=== PATIENT | male | born 1955 | race African-American/Black ===

== ENCOUNTER 2017-08-02 17:38 | Inpatient (IN) ==
[2017-08-02] MEDS ORDERED: SODIUM CHLORIDE 0.9% 2,000 ML IV STA ×2 (20:39→23:49)
[2017-08-02] MEDS ORDERED: ONDANSETRON 4 MG/2 ML VIAL IV STA (20:39)
[2017-08-02 21:34] LABS: Basophils # 0.1 10*3/uL (0.0-0.2); Basophils % 0.6 % (0.0-0.8); Eosinophils # 0.1 10*3/uL (0.0-0.87); Eosinophils % 1.1 % (0.00-10.9); Hematocrit 32.6 VOL% (42.0-52.0); Hemoglobin 10.3 GM/DL (14.0-18.0); Immature Granulocytes % 0.5 %; Immature Granulocytes Absolute 0.06 #; Lymphocytes # 0.8 10*3/uL (1.4-4.0); Lymphocytes % 6.9 % (21.2-54.2); Mean Corpuscular HGB Conc 31.6 GM/DL (32-36); Mean Corpuscular Hemoglobin 28 PG (27-34); Mean Corpuscular Volume 87.6 FL (87-102); Mean Platelet Volume 9.6 FL (9.6-12.0); Monocytes # 0.8 10*3/uL (0.11-0.8); Neutrophils % 83.9 % (38.7-73.9); Platelet Count 350 T/CUMM (130-400); Red Blood Count 3.72 MC/CUMM (3.8-5.5); Red Cell Distribution Width 14.9 % (9.3-17.3)
[2017-08-02 23:38] LABS: Albumin 2.6 G/DL (3.4-5.0); Bilirubin,Total 0.5 MG/DL (0.2-1.0); Calcium 13.9 MG/DL (8.5-10.1); Osmolality,Calculated 272.1 MOS/KG (273-304); Potassium 3.6 MMOL/L (3.5-5.1); Total Protein 6.8 G/DL (6.4-8.3)
[2017-08-02] MEDS ORDERED: cefTRIAXone 1,000 MG in SODIUM CHLORIDE 0.9% 100 ML IV STA (23:48)
[2017-08-02] MEDS ORDERED: FUROSEMIDE 40 MG/4 ML VIAL IV STA (23:51)
[2017-08-02] MEDS ORDERED: methylPREDNISolone SOD SUC 125 MG/2 ML VIAL IV STA (23:52)
[2017-08-02] MEDS ORDERED: AZITHROMYCIN 500 MG VIAL IV ONE (23:56)
[2017-08-02] MEDS ORDERED: cefTRIAXone 1,000 MG VIAL ONE (23:56)
[2017-08-02] MEDS ORDERED: FUROSEMIDE 40 MG/4 ML VIAL ONE (23:56)
[2017-08-02] MEDS ORDERED: SODIUM CHLORIDE 0.9% 100 ML IV ONE (23:56)
[2017-08-03 00:46] LABS: Apearance,Urine CLEAR (Clear); Bacteria,Urine Occasional /HPF (Few); Bilirubin,Urine Negative (Negative); Blood, Urine Negative (Negative); Glucose,Urine (UA) Negative (Negative); Hyaline Casts,Urine 1 /LPF (0-3); Ketones,Urine 5 mg/dL (Negative); Mucus,Urine Occasional /LPF (Occasional); Nitrite,Urine Negative (Negative); Protein,Urine Negative; RBC,Urine 2 /HPF (0-4); Squamous Epithelial Cell,Urine Occasional /HPF (0-10); Urine Color Yellow (Yellow); Urine Specific Gravity 1.011 (1.001-1.035); Urine Urobilinogen < 2.0 EU/DL (0.2-1.0); WBC,Urine 10 /HPF (0-6)
[2017-08-03] MEDS ORDERED: methylPREDNISolone SOD SUC 125 MG/2 ML VIAL ONE (00:53)
[2017-08-03] MEDS ORDERED: ONDANSETRON 4 MG/2 ML VIAL IV PRN (02:38)
[2017-08-03] MEDS ORDERED: DOCUSATE SODIUM 100 MG CAPSULE PO PRN (02:38)
[2017-08-03] MEDS ORDERED: ALBUTEROL/IPRATROPIUM 3 ML NEB RESP TX STA (02:45)
[2017-08-03] MEDS ORDERED: ALBUTEROL/IPRATROPIUM 3 ML NEB RESP TX PRN (02:45)
[2017-08-03] MEDS ORDERED: ENOXAPARIN 40 MG/0.4 ML SYRINGE SUBCUT SCH (03:00)
[2017-08-03] MEDS: AZITHROMYCIN INJ 500 MG in SODIUM CHLORIDE 0.9% 250 ML IV STA ×2 (03:05→05:59)
[2017-08-03] MEDS: SODIUM CHLORIDE 0.9% 1,000 ML IV SCH ×3 (05:44→18:18)
[2017-08-03] MEDS: PIPERACILLIN/TAZOBACTAM 3,375 MG in SODIUM CHLORIDE 0.9% 100 ML IV SCH ×3 (05:45→21:40)
[2017-08-03] MEDS ORDERED: ZOLEDRONIC ACID 4 MG in PREMIX 1 EACH IV ONE (06:00)
[2017-08-03] MEDS: ENOXAPARIN 40 MG/0.4 ML SYRINGE SUBCUT SCH (06:22)
[2017-08-03 06:35] LABS: Basophils # 0.1 10*3/uL (0.0-0.2); Basophils % 0.4 % (0.0-0.8); Eosinophils % 0.4 % (0.00-10.9); Hematocrit 30.7 VOL% (42.0-52.0); Hemoglobin 9.5 GM/DL (14.0-18.0); Immature Granulocytes % 0.6 %; Immature Granulocytes Absolute 0.07 #; Lymphocytes # 0.3 10*3/uL (1.4-4.0); Lymphocytes % 2.8 % (21.2-54.2); Mean Corpuscular HGB Conc 30.9 GM/DL (32-36); Mean Corpuscular Hemoglobin 27 PG (27-34); Mean Platelet Volume 9.9 FL (9.6-12.0); Monocytes # 0.2 10*3/uL (0.11-0.8); Monocytes % 2.1 % (1.7-12.7); Neutrophils # 10.7 10*3/uL (1.4-7.4); Neutrophils % 93.7 % (38.7-73.9); Platelet Count 364 T/CUMM (130-400); Red Blood Count 3.53 MC/CUMM (3.8-5.5); Red Cell Distribution Width 15.2 % (9.3-17.3); White Blood Count 11.4 T/CUMM (4-12)
[2017-08-03 07:09] LABS: Albumin 2.6 G/DL (3.4-5.0); Bilirubin,Total 0.7 MG/DL (0.2-1.0); Calcium 13.4 MG/DL (8.5-10.1); Osmolality,Calculated 276.7 MOS/KG (273-304)
[2017-08-03 08:11] LABS: Band Neutrophils 2 % (0-10); Eosinophils 1 % (0-10); Lymphocytes 2 % (20-55); Platelet Estimate Normal; Segmented Neutrophils 95 % (50-85); Total Cells Counted 100
[2017-08-03] MEDS: amLODIPine 10 MG TABLET PO SCH (08:20)
[2017-08-03] MEDS: PANTOPRAZOLE 40 MG TABLET PO SCH (09:09)
[2017-08-03] MEDS ORDERED: guaiFENesin/DM ER 600-30 MG TABLET PO PRN (13:43)
[2017-08-03] MEDS ORDERED: FOLIC ACID 0.4 MG TABLET PO PRN (13:43)
[2017-08-04] MEDS: SODIUM CHLORIDE 0.9% 1,000 ML IV SCH ×3 (04:33→15:28)
[2017-08-04] MEDS: ENOXAPARIN 40 MG/0.4 ML SYRINGE SUBCUT SCH (06:18)
[2017-08-04] MEDS: PIPERACILLIN/TAZOBACTAM 3,375 MG in SODIUM CHLORIDE 0.9% 100 ML IV SCH ×2 (06:20→17:50)
[2017-08-04 07:43] LABS: INR 1.5; PT Patient Result 15.4 SECS
[2017-08-04 08:10] LABS: Calcium 12.5 MG/DL (8.5-10.1); Magnesium 1.7 MG/DL (1.8-2.4); Osmolality,Calculated 284.4 MOS/KG (273-304); Potassium 3.3 MMOL/L (3.5-5.1)
[2017-08-04] MEDS: FUROSEMIDE 40 MG/4 ML VIAL IV SCH ×3 (10:27→16:18)
[2017-08-04] MEDS: amLODIPine 10 MG TABLET PO SCH (10:27)
[2017-08-04] MEDS: PANTOPRAZOLE 40 MG TABLET PO SCH (10:28)
[2017-08-04] MEDS: POTASSIUM CHLORIDE 20 MEQ TABLET PO SCH ×3 (10:28→16:15)
[2017-08-04] MEDS ORDERED: MAGNESIUM SULF RIDER 4 GM in PREMIX 1 EACH IV PRN (11:29)
[2017-08-04] MEDS ORDERED: MAGNESIUM SULF RIDER 2 GM in PREMIX 1 EACH IV PRN (11:29)
[2017-08-05] MEDS: PIPERACILLIN/TAZOBACTAM 3,375 MG in SODIUM CHLORIDE 0.9% 100 ML IV SCH ×2 (02:07→10:26)
[2017-08-05] MEDS: SODIUM CHLORIDE 0.9% 1,000 ML IV SCH ×2 (06:54→09:31)
[2017-08-05] MEDS ORDERED: DIAZEPAM 5 MG TABLET PO ONE (07:57)
[2017-08-05] MEDS: amLODIPine 10 MG TABLET PO SCH (09:22)
[2017-08-05] MEDS: FUROSEMIDE 40 MG/4 ML VIAL IV SCH (09:30)
[2017-08-05] MEDS: PANTOPRAZOLE 40 MG TABLET PO SCH (09:31)
[2017-08-06 06:58] LABS: Basophils % 0.4 % (0.0-0.8); Eosinophils # 0.2 10*3/uL (0.0-0.87); Eosinophils % 1.4 % (0.00-10.9); Hematocrit 31.3 VOL% (42.0-52.0); Immature Granulocytes % 0.8 %; Immature Granulocytes Absolute 0.09 #; Lymphocytes # 0.5 10*3/uL (1.4-4.0); Mean Corpuscular HGB Conc 31.9 GM/DL (32-36); Mean Corpuscular Hemoglobin 27 PG (27-34); Mean Corpuscular Volume 85.3 FL (87-102); Mean Platelet Volume 10.1 FL (9.6-12.0); Monocytes # 0.8 10*3/uL (0.11-0.8); Monocytes % 6.7 % (1.7-12.7); Neutrophils # 9.9 10*3/uL (1.4-7.4); Neutrophils % 86.7 % (38.7-73.9); Platelet Count 339 T/CUMM (130-400); Red Blood Count 3.67 MC/CUMM (3.8-5.5); Red Cell Distribution Width 15.2 % (9.3-17.3); White Blood Count 11.4 T/CUMM (4-12)
[2017-08-06 07:25] LABS: Eosinophils 2 % (0-10); Giant Platelets Few; Hypochromasia 1+; Lymphocytes 3 % (20-55); Ovalocytes Slight; Platelet Estimate Adequate; Segmented Neutrophils 86 % (50-85); Total Cells Counted 100
[2017-08-06 07:34] LABS: Calcium 9.5 MG/DL (8.5-10.1); Magnesium 1.6 MG/DL (1.8-2.4); Osmolality,Calculated 267.1 MOS/KG (273-304)
[2017-08-06 07:51] LABS: Potassium 2.5 MMOL/L (3.5-5.1)
[2017-08-06] MEDS ORDERED: MAGNESIUM SULF RIDER 2 GM in PREMIX 1 EACH IV ONE ×2 (07:54→15:12)
[2017-08-06] MEDS ORDERED: POTASSIUM CHLORIDE RIDER 10 MEQ in PREMIX 1 EACH IV SCH (08:00)
[2017-08-06] MEDS: amLODIPine 10 MG TABLET PO SCH (08:44)
[2017-08-06] MEDS: SODIUM CHLOR 0.45% KCL 20 MEQ 20 MEQ/1,000 ML BAG IV SCH (08:44)
[2017-08-06] MEDS: PANTOPRAZOLE 40 MG TABLET PO SCH (08:44)
[2017-08-06] MEDS ORDERED: POTASSIUM CHLORIDE INJ 40 MEQ in SODIUM CHLORIDE 0.45% 250 ML IV ONE (09:00)
[2017-08-06] MEDS: POTASSIUM CHLORIDE 20 MEQ TABLET PO SCH ×3 (16:25→23:51)
[2017-08-07] MEDS: POTASSIUM CHLORIDE 20 MEQ TABLET PO SCH (03:53)
[2017-08-07] MEDS: SODIUM CHLOR 0.45% KCL 20 MEQ 20 MEQ/1,000 ML BAG IV SCH ×2 (03:54→10:11)
[2017-08-07] MEDS: amLODIPine 10 MG TABLET PO SCH (08:42)
[2017-08-07] MEDS: PANTOPRAZOLE 40 MG TABLET PO SCH (08:42)
[2017-08-07 08:48] LABS: Calcium 8.1 MG/DL (8.5-10.1); Magnesium 2.1 MG/DL (1.8-2.4); Osmolality,Calculated 263.2 MOS/KG (273-304); Potassium 3.1 MMOL/L (3.5-5.1)
[2017-08-07] MEDS ORDERED: POTASSIUM CHLORIDE 20 MEQ TABLET PO ONE (11:00)
[2017-08-07 11:43] VITALS: BP 99/63
== END 2017-08-07 12:40 | disposition home or self-care (01) | DRG 181 ==
LOC: N.ED 17:38 → N.EDINP 08-03 02:38 → N.4E 08-03 04:38
PROVIDERS: ADMIT Internal Medicine; ATTEND Internal Medicine

== ENCOUNTER 2018-05-23 22:25 | Inpatient (IN) ==
[2018-05-23] MEDS ORDERED: SODIUM CHLORIDE 0.9% 1,000 ML IV STA (23:10)
[2018-05-23 23:17] LABS: Basophils % 0.5 % (0.0-0.8); Eosinophils % 0.2 % (0.00-10.9); Hematocrit 23.4 VOL% (42.0-52.0); Hemoglobin 7.6 GM/DL (14.0-18.0); Immature Granulocytes % 2.4 %; Lymphocytes # 1.5 10*3/uL (1.4-4.0); Lymphocytes % 18.2 % (21.2-54.2); Mean Corpuscular HGB Conc 32.5 GM/DL (32-36); Mean Corpuscular Hemoglobin 31 PG (27-34); Mean Corpuscular Volume 94.4 FL (87-102); Mean Platelet Volume 10.2 FL (9.6-12.0); Monocytes # 0.3 10*3/uL (0.11-0.8); Monocytes % 3.1 % (1.7-12.7); Neutrophils # 6.3 10*3/uL (1.4-7.4); Neutrophils % 75.6 % (38.7-73.9); Platelet Count 333 T/CUMM (130-400); Red Blood Count 2.48 MC/CUMM (3.8-5.5); Red Cell Distribution Width 17.9 % (9.3-17.3); White Blood Count 8.3 T/CUMM (4-12)
[2018-05-23 23:22] LABS: INR 1.2; PT Patient Result 12.4 SECS; Partial Thromboplastin Time 26.6 SECS (0-40)
[2018-05-23 23:34] LABS: Alanine Aminotransferase < 9 U/L (16-61); Albumin 2.6 G/DL (3.4-5.0); Alkaline Phosphatase 88 U/L (45-117); Aspartate Amino Transferase 13 U/L (0-37); Blood Urea Nitrogen 10 MG/DL (7-18); Calcium 9.4 MG/DL (8.5-10.1); Glucose 123 MG/DL (74-106); Sodium 136 MMOL/L (136-145); Total Protein 7.4 G/DL (6.4-8.3)
[2018-05-24 00:01] LABS: Lactic Acid 3.8 MMOL/L (0.4-2.0)
[2018-05-24] MEDS ORDERED: LORazepam 2 MG/1 ML VIAL ONE (00:09)
[2018-05-24] MEDS ORDERED: VANCOMYCIN INJ 1,000 MG in SODIUM CHLORIDE 0.9% 250 ML IV STA (00:14)
[2018-05-24] MEDS ORDERED: PIPERACILLIN/TAZOBACTAM 2,250 MG in SODIUM CHLORIDE 0.9% 100 ML IV STA (00:14)
[2018-05-24] MEDS ORDERED: LORazepam 2 MG/1 ML VIAL IV STA ×3 (00:20→03:37)
[2018-05-24] MEDS ORDERED: PIPERACILLIN/TAZOBACTAM 3,375 MG in SODIUM CHLORIDE 0.9% 100 ML IV STA (00:26)
[2018-05-24] MEDS ORDERED: SODIUM CHLORIDE 0.9% 1,000 ML IV STA (00:52)
[2018-05-24] MEDS: POTASSIUM CHLORIDE RIDER 100 ML IV SCH ×3 (01:13→06:05)
[2018-05-24 01:44] LABS: Apearance,Urine CLOUDY (Clear); Bacteria,Urine Many /HPF (Few); Bilirubin,Urine Negative (Negative); Blood, Urine Negative (Negative); Glucose,Urine (UA) Negative (Negative); Ketones,Urine Negative (Negative); Mucus,Urine Many /LPF (Occasional); Nitrite,Urine Negative (Negative); Protein,Urine 100 MG/DL; Urine Color Amber (Yellow); Urine Specific Gravity 1.019 (1.001-1.035); WBC,Urine 482 /HPF (0-6)
[2018-05-24 02:14] LABS: Barbiturates Screen,Urine Negative (Negative); Benzodiazepines Screen,Urine Negative (Negative); Cannabinoid Screen,Urine Negative (Negative); Opiate Screen,Urine Positive (Negative); Phencyclidine Screen,Urine Negative (Negative)
[2018-05-24] MEDS ORDERED: POTASSIUM CHLORIDE RIDER 100 ML IV ONE (05:02)
[2018-05-24] MEDS ORDERED: LORazepam 2 MG/1 ML VIAL IM PRN (05:22)
[2018-05-24] MEDS ORDERED: DEXAMETHASONE 4 MG/1 ML VIAL IV SCH (06:00)
[2018-05-24] MEDS: SODIUM CHLORIDE 0.9% 1,000 ML IV SCH (06:55)
[2018-05-24] MEDS ORDERED: diphenhydrAMINE 50 MG/1 ML VIAL IV PRN (07:01)
[2018-05-24] MEDS ORDERED: ACETAMINOPHEN 325 MG TABLET PO PRN (07:01)
[2018-05-24] MEDS ORDERED: FUROSEMIDE 20 MG/2 ML VIAL IV PRN (07:01)
[2018-05-24] MEDS ORDERED: SODIUM CHLORIDE 0.9% 1,000 ML IV PRN (07:01)
[2018-05-24 07:27] LABS: Calcium 8.4 MG/DL (8.5-10.1); Osmolality,Calculated 276.4 MOS/KG (273-304); Potassium 3.6 MMOL/L (3.5-5.1)
[2018-05-24] MEDS: LEVOFLOXACIN INJ 500 MG in PREMIX 1 EACH IV SCH (08:04)
[2018-05-24] MEDS ORDERED: PANTOPRAZOLE 40 MG TABLET PO SCH (09:00)
[2018-05-24] MEDS: DEXAMETHASONE 4 MG/1 ML VIAL IV SCH ×2 (09:38→17:13)
[2018-05-24] MEDS ORDERED: PIPERACILLIN/TAZOBACTAM 3,375 MG in SODIUM CHLORIDE 0.9% 100 ML IV SCH (10:00)
[2018-05-24] MEDS ORDERED: MAGNESIUM SULF RIDER 4 GM in PREMIX 1 EACH IV PRN (10:02)
[2018-05-24] MEDS: ZIPRASIDONE 20 MG/1 ML VIAL IM PRN ×2 (11:45→17:13)
[2018-05-24] MEDS: PANTOPRAZOLE 40 MG VIAL IV SCH (11:45)
[2018-05-24] MEDS: PIPERACILLIN/TAZOBACTAM 3,375 MG in SODIUM CHLORIDE 0.9% 100 ML IV SCH ×2 (11:46→21:48)
[2018-05-24] MEDS ORDERED: ZIPRASIDONE 20 MG/1 ML VIAL IM ONE (12:42)
[2018-05-24] MEDS: LORazepam 2 MG/1 ML VIAL IV PRN ×2 (15:38→21:41)
[2018-05-24] MEDS: MORPHINE 4 MG/1 ML VIAL IV PRN (21:49)
[2018-05-25] MEDS: LORazepam 2 MG/1 ML VIAL IV PRN ×4 (00:54→20:30)
[2018-05-25] MEDS: DEXAMETHASONE 4 MG/1 ML VIAL IV SCH ×3 (01:02→20:25)
[2018-05-25] MEDS: SODIUM CHLORIDE 0.9% 1,000 ML IV SCH (01:05)
[2018-05-25] MEDS: MORPHINE 4 MG/1 ML VIAL IV PRN ×3 (01:25→23:04)
[2018-05-25] MEDS: PIPERACILLIN/TAZOBACTAM 3,375 MG in SODIUM CHLORIDE 0.9% 100 ML IV SCH ×2 (02:29→20:24)
[2018-05-25] MEDS: LEVOFLOXACIN INJ 500 MG in PREMIX 1 EACH IV SCH (07:01)
[2018-05-25] MEDS ORDERED: LORazepam 2 MG/1 ML VIAL IV ONE (07:40)
[2018-05-25] MEDS ORDERED: HALOPERIDOL 5 MG/ML AMP IV ONE (07:41)
[2018-05-25] MEDS ORDERED: diphenhydrAMINE 50 MG/1 ML VIAL IV ONE (07:41)
[2018-05-25] MEDS ORDERED: chlorproMAZINE INJ 25 MG in SODIUM CHLORIDE 0.9% 100 ML IV ONE (08:04)
[2018-05-25 09:14] LABS: Basophils % 0.1 % (0.0-0.8); Hematocrit 27.5 VOL% (42.0-52.0); Hemoglobin 8.9 GM/DL (14.0-18.0); Immature Granulocytes % 1.7 %; Immature Granulocytes Absolute 0.15 #; Lymphocytes # 0.4 10*3/uL (1.4-4.0); Lymphocytes % 4.8 % (21.2-54.2); Mean Corpuscular HGB Conc 32.4 GM/DL (32-36); Mean Corpuscular Hemoglobin 30 PG (27-34); Mean Corpuscular Volume 91.7 FL (87-102); Mean Platelet Volume 10.1 FL (9.6-12.0); Monocytes # 0.3 10*3/uL (0.11-0.8); Monocytes % 3.6 % (1.7-12.7); Neutrophils % 89.8 % (38.7-73.9); Platelet Count 272 T/CUMM (130-400); Red Cell Distribution Width 17.1 % (9.3-17.3)
[2018-05-25 09:24] LABS: Albumin 2.7 G/DL (3.4-5.0); Bilirubin,Total 0.6 MG/DL (0.2-1.0); Calcium 9.2 MG/DL (8.5-10.1); Osmolality,Calculated 279.3 MOS/KG (273-304); Potassium 3.1 MMOL/L (3.5-5.1); Total Protein 7.2 G/DL (6.4-8.3)
[2018-05-25 10:01] LABS: Band Neutrophils 7 % (0-10); Lymphocytes 5 % (20-55); Total Cells Counted 100
[2018-05-25 10:02] LABS: Macrocytosis 1+; Platelet Estimate Normal
[2018-05-25 10:03] LABS: Anisocytosis 1+; Polychromasia Slight
[2018-05-25 10:04] LABS: Poikilocytosis Slight
[2018-05-25 10:05] LABS: Segmented Neutrophils 83 % (50-85)
[2018-05-25] MEDS ORDERED: POTASSIUM PHOSPHATE 30 MMOL in SODIUM CHLORIDE 0.9% 250 ML IV ONE (10:19)
[2018-05-25] MEDS: PANTOPRAZOLE 40 MG VIAL IV SCH (11:40)
[2018-05-25] MEDS: HALOPERIDOL 5 MG/ML AMP IV PRN (13:16)
[2018-05-25] MEDS: diphenhydrAMINE 50 MG/1 ML VIAL IV PRN ×2 (14:27→19:34)
[2018-05-25] MEDS ORDERED: SKIN HEALING OINT (AQUAPHOR) 50 GM TUBE TOP PRN (14:56)
[2018-05-25] MEDS: ZINC OXIDE PASTE 113 GM TUBE TOP SCH (20:29)
[2018-05-26] MEDS: DEXAMETHASONE 4 MG/1 ML VIAL IV SCH ×3 (00:46→16:48)
[2018-05-26] MEDS: MORPHINE 4 MG/1 ML VIAL IV PRN ×3 (02:21→15:33)
[2018-05-26] MEDS: diphenhydrAMINE 50 MG/1 ML VIAL IV PRN ×4 (05:01→23:32)
[2018-05-26 07:22] LABS: Basophils % 0.1 % (0.0-0.8); Hemoglobin 9.8 GM/DL (14.0-18.0); Immature Granulocytes % 0.8 %; Immature Granulocytes Absolute 0.08 #; Lymphocytes # 0.4 10*3/uL (1.4-4.0); Lymphocytes % 3.7 % (21.2-54.2); Mean Corpuscular HGB Conc 32.7 GM/DL (32-36); Mean Corpuscular Hemoglobin 30 PG (27-34); Mean Corpuscular Volume 93.2 FL (87-102); Mean Platelet Volume 10.3 FL (9.6-12.0); Monocytes # 0.3 10*3/uL (0.11-0.8); Neutrophils # 9.4 10*3/uL (1.4-7.4); Neutrophils % 92.4 % (38.7-73.9); Platelet Count 289 T/CUMM (130-400); Red Blood Count 3.22 MC/CUMM (3.8-5.5); Red Cell Distribution Width 17.6 % (9.3-17.3); White Blood Count 10.2 T/CUMM (4-12)
[2018-05-26] MEDS: PIPERACILLIN/TAZOBACTAM 3,375 MG in SODIUM CHLORIDE 0.9% 100 ML IV SCH ×3 (07:26→17:33)
[2018-05-26] MEDS: LEVOFLOXACIN INJ 500 MG in PREMIX 1 EACH IV SCH (07:29)
[2018-05-26] MEDS: SODIUM CHLORIDE 0.9% 1,000 ML IV SCH ×4 (07:31→20:44)
[2018-05-26 07:36] LABS: Albumin 2.8 G/DL (3.4-5.0); Bilirubin,Total 0.6 MG/DL (0.2-1.0); Calcium 8.9 MG/DL (8.5-10.1); Potassium 3.9 MMOL/L (3.5-5.1); Total Protein 7.5 G/DL (6.4-8.3)
[2018-05-26 07:48] LABS: Band Neutrophils 12 % (0-10); Lymphocytes 1 % (20-55); Segmented Neutrophils 85 % (50-85); Total Cells Counted 100
[2018-05-26 07:49] LABS: Anisocytosis 1+; Macrocytosis 1+; Platelet Estimate Normal
[2018-05-26] MEDS: LORazepam 2 MG/1 ML VIAL IV PRN ×2 (09:09→20:38)
[2018-05-26] MEDS: PANTOPRAZOLE 40 MG VIAL IV SCH (09:11)
[2018-05-26] MEDS: HALOPERIDOL 5 MG/ML AMP IV PRN ×2 (09:13→19:26)
[2018-05-26] MEDS: ZINC OXIDE PASTE 113 GM TUBE TOP SCH ×2 (11:35→20:44)
[2018-05-26 13:15] LABS: Appearance,CSF Hazy; White Blood Cell,CSF 197 C/CUMM
[2018-05-26 13:16] LABS: Red Blood Cell,CSF 10703 C/CUMM
[2018-05-26] MEDS ORDERED: ACETAMINOPHEN 325 MG TABLET PO ONE (16:02)
[2018-05-26 17:26] LABS: Lymphocytes,CSF 16 %; Monocytes,CSF 6 %; Neutrophils,CSF 77 %
[2018-05-26] MEDS ORDERED: METOPROLOL TARTRATE 5 MG/5 ML VIAL IV ONE (23:41)
[2018-05-27] MEDS: DEXAMETHASONE 4 MG/1 ML VIAL IV SCH ×4 (00:03→23:31)
[2018-05-27] MEDS: MORPHINE 4 MG/1 ML VIAL IV PRN ×5 (01:53→22:11)
[2018-05-27] MEDS: PIPERACILLIN/TAZOBACTAM 3,375 MG in SODIUM CHLORIDE 0.9% 100 ML IV SCH (02:21)
[2018-05-27 05:36] LABS: Basophils % 0.1 % (0.0-0.8); Hematocrit 25.9 VOL% (42.0-52.0); Hemoglobin 8.1 GM/DL (14.0-18.0); Immature Granulocytes % 0.7 %; Immature Granulocytes Absolute 0.05 #; Lymphocytes # 0.4 10*3/uL (1.4-4.0); Lymphocytes % 5.4 % (21.2-54.2); Mean Corpuscular HGB Conc 31.3 GM/DL (32-36); Mean Corpuscular Hemoglobin 29 PG (27-34); Mean Corpuscular Volume 93.5 FL (87-102); Mean Platelet Volume 10.1 FL (9.6-12.0); Monocytes # 0.4 10*3/uL (0.11-0.8); Monocytes % 6.2 % (1.7-12.7); NRBC # 0.02 10*3/uL; Neutrophils % 87.6 % (38.7-73.9); Platelet Count 209 T/CUMM (130-400); Red Blood Count 2.77 MC/CUMM (3.8-5.5); Red Cell Distribution Width 17.5 % (9.3-17.3); White Blood Count 6.8 T/CUMM (4-12)
[2018-05-27 05:47] LABS: Alanine Aminotransferase < 9 U/L (16-61); Albumin 2.3 G/DL (3.4-5.0); Alkaline Phosphatase 66 U/L (45-117); Aspartate Amino Transferase 12 U/L (0-37); Blood Urea Nitrogen 12 MG/DL (7-18); Calcium 8.5 MG/DL (8.5-10.1); Glucose 124 MG/DL (74-106); Osmolality,Calculated 286.8 MOS/KG (273-304); Potassium 3.1 MMOL/L (3.5-5.1); Sodium 144 MMOL/L (136-145); Total Protein 6.2 G/DL (6.4-8.3)
[2018-05-27 06:11] LABS: Lymphocytes 1 % (20-55); Nucleated Red Blood Cells 2 (0-5); Segmented Neutrophils 96 % (50-85); Total Cells Counted 100
[2018-05-27 06:12] LABS: Hypochromasia 1+; Macrocytosis Slight; Ovalocytes Slight; Platelet Estimate Adequate
[2018-05-27] MEDS: LEVOFLOXACIN INJ 500 MG in PREMIX 1 EACH IV SCH (06:47)
[2018-05-27] MEDS: PANTOPRAZOLE 40 MG VIAL IV SCH (09:08)
[2018-05-27] MEDS: diphenhydrAMINE 50 MG/1 ML VIAL IV PRN ×2 (09:21→23:28)
[2018-05-27] MEDS ORDERED: POTASSIUM PHOSPHATE 15 MMOL in SODIUM CHLORIDE 0.9% 100 ML IV ONE (09:59)
[2018-05-27] MEDS: IBUPROFEN 100 MG/5 ML UDCUP PO SCH ×2 (10:37→17:08)
[2018-05-27] MEDS: SODIUM CHLOR 0.45% KCL 20 MEQ 20 MEQ/1,000 ML BAG IV SCH ×2 (10:40→23:27)
[2018-05-27] MEDS: ZINC OXIDE PASTE 113 GM TUBE TOP SCH ×3 (10:45→21:48)
[2018-05-27] MEDS ORDERED: MAGNESIUM SULF RIDER 4 GM in PREMIX 1 EACH IV PRN (13:30)
[2018-05-27] MEDS: HALOPERIDOL 5 MG/ML AMP IV PRN (15:25)
[2018-05-27] MEDS ORDERED: FUROSEMIDE 20 MG/2 ML VIAL IV ONE (18:08)
[2018-05-27] MEDS: ALBUTEROL/IPRATROPIUM 3 ML NEB RESP TX SCH (19:04)
[2018-05-27] MEDS: VANCOMYCIN INJ 750 MG in SODIUM CHLORIDE 0.9% 250 ML IV SCH (19:41)
[2018-05-28] MEDS: ALBUTEROL/IPRATROPIUM 3 ML NEB RESP TX SCH ×4 (00:04→20:00)
[2018-05-28] MEDS: HALOPERIDOL 5 MG/ML AMP IV PRN ×3 (00:33→19:52)
[2018-05-28] MEDS: MORPHINE 4 MG/1 ML VIAL IV PRN ×2 (02:14→08:45)
[2018-05-28] MEDS: IBUPROFEN 100 MG/5 ML UDCUP PO SCH ×3 (02:19→17:53)
[2018-05-28] MEDS: diphenhydrAMINE 50 MG/1 ML VIAL IV PRN ×2 (05:26→12:38)
[2018-05-28 06:15] LABS: Basophils % 0.1 % (0.0-0.8); Hematocrit 30.8 VOL% (42.0-52.0); Hemoglobin 9.6 GM/DL (14.0-18.0); Immature Granulocytes % 1.6 %; Immature Granulocytes Absolute 0.12 #; Lymphocytes # 0.4 10*3/uL (1.4-4.0); Mean Corpuscular HGB Conc 31.2 GM/DL (32-36); Mean Corpuscular Hemoglobin 29 PG (27-34); Mean Corpuscular Volume 93.9 FL (87-102); Mean Platelet Volume 10.5 FL (9.6-12.0); Monocytes # 0.9 10*3/uL (0.11-0.8); Monocytes % 11.9 % (1.7-12.7); NRBC # 0.02 10*3/uL; Neutrophils % 81.4 % (38.7-73.9); Platelet Count 222 T/CUMM (130-400); Red Blood Count 3.28 MC/CUMM (3.8-5.5); Red Cell Distribution Width 17.7 % (9.3-17.3); White Blood Count 7.3 T/CUMM (4-12)
[2018-05-28 06:37] LABS: Albumin 2.6 G/DL (3.4-5.0); Bilirubin,Total 0.7 MG/DL (0.2-1.0); Calcium 9.2 MG/DL (8.5-10.1); Potassium 3.4 MMOL/L (3.5-5.1); Total Protein 6.9 G/DL (6.4-8.3)
[2018-05-28 06:38] LABS: Band Neutrophils 3 % (0-10); Hypochromasia 1+; Lymphocytes 4 % (20-55); Microcytosis 1+; Ovalocytes Slight; Segmented Neutrophils 85 % (50-85); Total Cells Counted 100
[2018-05-28] MEDS: LEVOFLOXACIN INJ 500 MG in PREMIX 1 EACH IV SCH (06:38)
[2018-05-28 06:39] LABS: Platelet Estimate Normal
[2018-05-28] MEDS: DEXAMETHASONE 4 MG/1 ML VIAL IV SCH ×2 (08:29→17:10)
[2018-05-28] MEDS: PANTOPRAZOLE 40 MG VIAL IV SCH (08:31)
[2018-05-28] MEDS: VANCOMYCIN INJ 750 MG in SODIUM CHLORIDE 0.9% 250 ML IV SCH (08:36)
[2018-05-28] MEDS ORDERED: POTASSIUM PHOSPHATE 15 MMOL in SODIUM CHLORIDE 0.9% 100 ML IV ONE (09:00)
[2018-05-28] MEDS ORDERED: METHYLNALTREXONE 12 MG/0.6 ML VIAL SUBCUT ONE (09:00)
[2018-05-28] MEDS: ZINC OXIDE PASTE 113 GM TUBE TOP SCH ×2 (09:45→20:32)
[2018-05-28] MEDS: LACTULOSE 20 GM/30 ML UDCUP PO SCH ×2 (09:50→20:32)
[2018-05-28] MEDS ORDERED: LORazepam 2 MG/1 ML VIAL IV PRN (10:10)
[2018-05-28] MEDS: LORazepam 2 MG/1 ML VIAL IV PRN ×2 (10:34→15:09)
[2018-05-28] MEDS: MORPHINE 10 MG/1 ML VIAL IV PRN ×2 (13:39→21:38)
[2018-05-28] MEDS: SODIUM CHLOR 0.45% KCL 20 MEQ 20 MEQ/1,000 ML BAG IV SCH (19:33)
[2018-05-28] MEDS: ATROPINE 1 % OPH SOLN 5 ML BOTTLE SL PRN (22:49)
[2018-05-29] MEDS: ALBUTEROL/IPRATROPIUM 3 ML NEB RESP TX SCH ×4 (01:45→18:59)
[2018-05-29] MEDS: SODIUM CHLOR 0.45% KCL 20 MEQ 20 MEQ/1,000 ML BAG IV SCH ×3 (02:11→16:07)
[2018-05-29] MEDS: IBUPROFEN 100 MG/5 ML UDCUP PO SCH ×3 (02:16→19:32)
[2018-05-29] MEDS: DEXAMETHASONE 4 MG/1 ML VIAL IV SCH ×4 (02:16→23:50)
[2018-05-29] MEDS: LORazepam 2 MG/1 ML VIAL IV PRN ×4 (03:46→22:59)
[2018-05-29 04:12] LABS: Basophils % 0.2 % (0.0-0.8); Hemoglobin 9.4 GM/DL (14.0-18.0); Immature Granulocytes % 1.1 %; Immature Granulocytes Absolute 0.07 #; Lymphocytes # 0.6 10*3/uL (1.4-4.0); Lymphocytes % 8.9 % (21.2-54.2); Mean Corpuscular HGB Conc 32.4 GM/DL (32-36); Mean Corpuscular Hemoglobin 31 PG (27-34); Mean Corpuscular Volume 94.2 FL (87-102); Mean Platelet Volume 10.3 FL (9.6-12.0); Monocytes # 0.7 10*3/uL (0.11-0.8); Monocytes % 9.9 % (1.7-12.7); NRBC # 0.06 10*3/uL; Neutrophils # 5.2 10*3/uL (1.4-7.4); Neutrophils % 79.9 % (38.7-73.9); Platelet Count 166 T/CUMM (130-400); Red Blood Count 3.08 MC/CUMM (3.8-5.5); Red Cell Distribution Width 17.9 % (9.3-17.3); White Blood Count 6.6 T/CUMM (4-12)
[2018-05-29 04:28] LABS: Alanine Aminotransferase < 9 U/L (16-61); Albumin 2.5 G/DL (3.4-5.0); Alkaline Phosphatase 62 U/L (45-117); Aspartate Amino Transferase 21 U/L (0-37); Blood Urea Nitrogen 14 MG/DL (7-18); Calcium 9.2 MG/DL (8.5-10.1); Glucose 106 MG/DL (74-106); Osmolality,Calculated 283.1 MOS/KG (273-304); Potassium 3.8 MMOL/L (3.5-5.1); Sodium 142 MMOL/L (136-145); Total Protein 6.6 G/DL (6.4-8.3)
[2018-05-29] MEDS: diphenhydrAMINE 50 MG/1 ML VIAL IV PRN ×4 (04:38→23:48)
[2018-05-29] MEDS: ATROPINE 1 % OPH SOLN 5 ML BOTTLE SL PRN ×2 (04:38→13:50)
[2018-05-29 04:45] LABS: Band Neutrophils 6 % (0-10); Lymphocytes 12 % (20-55); Segmented Neutrophils 75 % (50-85); Total Cells Counted 100
[2018-05-29 04:46] LABS: Hypochromasia 1+; Platelet Estimate Normal
[2018-05-29 04:47] LABS: Microcytosis 1+; Ovalocytes 1+
[2018-05-29] MEDS: MORPHINE 10 MG/1 ML VIAL IV PRN ×3 (08:26→19:43)
[2018-05-29] MEDS: PANTOPRAZOLE 40 MG VIAL IV SCH (08:37)
[2018-05-29] MEDS: LEVOFLOXACIN INJ 500 MG in PREMIX 1 EACH IV SCH (08:41)
[2018-05-29] MEDS: LACTULOSE 20 GM/30 ML UDCUP PO SCH ×2 (09:25→20:04)
[2018-05-29] MEDS: VANCOMYCIN INJ 750 MG in SODIUM CHLORIDE 0.9% 250 ML IV SCH ×2 (11:53→21:42)
[2018-05-29] MEDS: HALOPERIDOL 5 MG/ML AMP IV PRN ×2 (13:36→19:40)
[2018-05-29] MEDS: ZINC OXIDE PASTE 113 GM TUBE TOP SCH ×2 (13:44→20:04)
[2018-05-29] MEDS: MAGNESIUM SULF RIDER 2 GM in PREMIX 1 EACH IV PRN (13:49)
[2018-05-30] MEDS: SODIUM CHLOR 0.45% KCL 20 MEQ 20 MEQ/1,000 ML BAG IV SCH ×2 (00:13→15:28)
[2018-05-30] MEDS: ALBUTEROL/IPRATROPIUM 3 ML NEB RESP TX SCH ×4 (02:12→19:32)
[2018-05-30] MEDS: IBUPROFEN 100 MG/5 ML UDCUP PO SCH ×3 (02:31→19:25)
[2018-05-30] MEDS: HALOPERIDOL 5 MG/ML AMP IV PRN ×3 (03:55→23:06)
[2018-05-30] MEDS: MORPHINE 10 MG/1 ML VIAL IV PRN ×4 (03:58→23:05)
[2018-05-30 05:40] LABS: Basophils % 0.1 % (0.0-0.8); Hematocrit 27.6 VOL% (42.0-52.0); Hemoglobin 8.6 GM/DL (14.0-18.0); Immature Granulocytes % 1.8 %; Immature Granulocytes Absolute 0.14 #; Lymphocytes # 0.3 10*3/uL (1.4-4.0); Lymphocytes % 3.9 % (21.2-54.2); Mean Corpuscular HGB Conc 31.2 GM/DL (32-36); Mean Corpuscular Hemoglobin 29 PG (27-34); Mean Corpuscular Volume 93.9 FL (87-102); Mean Platelet Volume 11.5 FL (9.6-12.0); Monocytes # 0.3 10*3/uL (0.11-0.8); Monocytes % 4.2 % (1.7-12.7); NRBC # 0.06 10*3/uL; Neutrophils # 6.9 10*3/uL (1.4-7.4); Platelet Count 146 T/CUMM (130-400); Red Blood Count 2.94 MC/CUMM (3.8-5.5); White Blood Count 7.7 T/CUMM (4-12)
[2018-05-30] MEDS: LEVOFLOXACIN INJ 500 MG in PREMIX 1 EACH IV SCH (06:03)
[2018-05-30 06:09] LABS: Alanine Aminotransferase < 9 U/L (16-61); Albumin 2.3 G/DL (3.4-5.0); Alkaline Phosphatase 58 U/L (45-117); Aspartate Amino Transferase 12 U/L (0-37); Blood Urea Nitrogen 10 MG/DL (7-18); Glucose 86 MG/DL (74-106); Osmolality,Calculated 278.3 MOS/KG (273-304); Potassium 3.8 MMOL/L (3.5-5.1); Sodium 141 MMOL/L (136-145); Total Protein 6.2 G/DL (6.4-8.3)
[2018-05-30 06:25] LABS: Band Neutrophils 1 % (0-10); Hypochromasia 1+; Lymphocytes 5 % (20-55); Platelet Estimate Normal; Segmented Neutrophils 90 % (50-85); Total Cells Counted 100
[2018-05-30 06:26] LABS: Microcytosis 1+; Ovalocytes Slight
[2018-05-30] MEDS: diphenhydrAMINE 50 MG/1 ML VIAL IV PRN ×3 (08:46→20:12)
[2018-05-30] MEDS: LORazepam 2 MG/1 ML VIAL IV PRN ×3 (08:48→19:57)
[2018-05-30] MEDS: PANTOPRAZOLE 40 MG VIAL IV SCH (08:50)
[2018-05-30] MEDS: DEXAMETHASONE 4 MG/1 ML VIAL IV SCH ×2 (08:52→17:12)
[2018-05-30] MEDS: VANCOMYCIN INJ 750 MG in SODIUM CHLORIDE 0.9% 250 ML IV SCH (11:54)
[2018-05-30] MEDS: LACTULOSE 20 GM/30 ML UDCUP PO SCH ×2 (15:27→20:17)
[2018-05-30] MEDS: ZINC OXIDE PASTE 113 GM TUBE TOP SCH ×2 (19:24→20:15)
[2018-05-31] MEDS: DEXAMETHASONE 4 MG/1 ML VIAL IV SCH ×3 (00:04→20:58)
[2018-05-31] MEDS: VANCOMYCIN INJ 750 MG in SODIUM CHLORIDE 0.9% 250 ML IV SCH (01:07)
[2018-05-31] MEDS: ALBUTEROL/IPRATROPIUM 3 ML NEB RESP TX SCH ×4 (01:15→18:30)
[2018-05-31] MEDS: LORazepam 2 MG/1 ML VIAL IV PRN ×2 (03:24→09:16)
[2018-05-31] MEDS: IBUPROFEN 100 MG/5 ML UDCUP PO SCH ×3 (03:26→17:21)
[2018-05-31] MEDS: diphenhydrAMINE 50 MG/1 ML VIAL IV PRN (03:37)
[2018-05-31 05:21] LABS: Basophils % 0.2 % (0.0-0.8); Hematocrit 28.6 VOL% (42.0-52.0); Hemoglobin 8.8 GM/DL (14.0-18.0); Immature Granulocytes % 2.1 %; Immature Granulocytes Absolute 0.23 #; Lymphocytes # 0.4 10*3/uL (1.4-4.0); Lymphocytes % 3.4 % (21.2-54.2); Mean Corpuscular HGB Conc 30.8 GM/DL (32-36); Mean Corpuscular Hemoglobin 29 PG (27-34); Mean Corpuscular Volume 94.4 FL (87-102); Mean Platelet Volume 11.2 FL (9.6-12.0); Monocytes # 0.2 10*3/uL (0.11-0.8); Monocytes % 2.2 % (1.7-12.7); NRBC # 0.05 10*3/uL; Neutrophils # 9.9 10*3/uL (1.4-7.4); Neutrophils % 92.1 % (38.7-73.9); Platelet Count 122 T/CUMM (130-400); Red Blood Count 3.03 MC/CUMM (3.8-5.5); Red Cell Distribution Width 17.9 % (9.3-17.3); White Blood Count 10.7 T/CUMM (4-12)
[2018-05-31 05:36] LABS: Alanine Aminotransferase < 9 U/L (16-61); Albumin 2.2 G/DL (3.4-5.0); Alkaline Phosphatase 58 U/L (45-117); Aspartate Amino Transferase 10 U/L (0-37); Blood Urea Nitrogen 9 MG/DL (7-18); Calcium 9.1 MG/DL (8.5-10.1); Glucose 92 MG/DL (74-106); Osmolality,Calculated 275.5 MOS/KG (273-304); Potassium 3.8 MMOL/L (3.5-5.1); Sodium 139 MMOL/L (136-145); Total Protein 6.1 G/DL (6.4-8.3)
[2018-05-31 05:58] LABS: Acanthocytes 1+; Band Neutrophils 6 % (0-10); Lymphocytes 3 % (20-55); Metamyelocytes 1 %; Platelet Estimate Decreased; Segmented Neutrophils 87 % (50-85); Total Cells Counted 100
[2018-05-31 05:59] LABS: Anisocytosis 1+; Macrocytosis 1+; Polychromasia Few
[2018-05-31] MEDS: HALOPERIDOL 5 MG/ML AMP IV PRN (06:01)
[2018-05-31] MEDS: MORPHINE 10 MG/1 ML VIAL IV PRN ×4 (06:02→18:49)
[2018-05-31] MEDS: SODIUM CHLOR 0.45% KCL 20 MEQ 20 MEQ/1,000 ML BAG IV SCH (06:03)
[2018-05-31] MEDS: LEVOFLOXACIN INJ 500 MG in PREMIX 1 EACH IV SCH (06:07)
[2018-05-31] MEDS: MAGNESIUM SULF RIDER 2 GM in PREMIX 1 EACH IV PRN ×2 (08:48→14:25)
[2018-05-31] MEDS: LACTULOSE 20 GM/30 ML UDCUP PO SCH ×2 (08:51→21:00)
[2018-05-31] MEDS: ZINC OXIDE PASTE 113 GM TUBE TOP SCH ×2 (08:51→21:00)
[2018-05-31] MEDS ORDERED: fentaNYL 50 MCG/HR PATCH TRANSDERM SCH (09:00)
[2018-06-01] MEDS: ALBUTEROL/IPRATROPIUM 3 ML NEB RESP TX SCH ×3 (00:10→13:00)
[2018-06-01] MEDS: MORPHINE 10 MG/1 ML VIAL IV PRN ×4 (00:31→21:40)
[2018-06-01] MEDS: IBUPROFEN 100 MG/5 ML UDCUP PO SCH ×2 (01:23→11:53)
[2018-06-01] MEDS: DEXAMETHASONE 4 MG/1 ML VIAL IV SCH (08:24)
[2018-06-01] MEDS: ZINC OXIDE PASTE 113 GM TUBE TOP SCH (08:27)
[2018-06-01] MEDS: LACTULOSE 20 GM/30 ML UDCUP PO SCH (08:28)
[2018-06-01] MEDS ORDERED: ALBUTEROL/IPRATROPIUM 3 ML NEB RESP TX PRN (13:11)
[2018-06-01] MEDS ORDERED: LORazepam 2 MG/1 ML VIAL IV PRN (13:11)
[2018-06-01] MEDS ORDERED: SCOPOLAMINE 1.5 MG PATCH TRANSDERM SCH ×2 (13:30→15:00)
[2018-06-01] MEDS: SCOPOLAMINE 1.5 MG PATCH TRANSDERM SCH ×2 (16:44→16:47)
[2018-06-02] MEDS: MORPHINE 10 MG/1 ML VIAL IV PRN ×5 (05:20→18:57)
[2018-06-02] MEDS: ACETAMINOPHEN 650 MG SUPP RECTAL PRN ×2 (16:45→21:54)
[2018-06-02 22:07] VITALS: BP 55/39
== END 2018-06-02 23:49 | disposition expired | DRG 54 ==
LOC: N.ED 22:25 → SUATTDRO 05-24 03:16 → N.EDINP 05-24 04:29 → N.4E 05-24 04:50
PROVIDERS: ATTEND Internal Medicine